=== PATIENT | female | born 1980 | race Caucasian/White ===

== ENCOUNTER → 2018-11-24 | Outpatient (CLI) | payer BC ==
[~2018-11-24] MED LIST: DARVOCET N; LORTAB ELIX0.5 MG/ML PO; MIRENA52 MG IU; MOTRIN 200200 MG/TAB PO; NO HOME MEDICATIONS; NORCO 325 MG-51 TAB PO; OXYCODONE5 M1 PO; PHENERGAN 25 TA25 MG PO; PRENATAL VITAMI1 TA5 PO; ROCEPHIN 11 G/10 ML IJ; TAMIFLU75 MG PO; TYLENOL 500MG500 MG PO; ZITHROMAX Z PA250 MG PO
== END ==
LOC: COL.RAD 15:26
DX: M25.511 Pain in right shoulder (principal)

== ENCOUNTER → 2020-04-01 | Outpatient (CLI) | payer BC | LOC: COL.RAD 07:53 | DX: K21.9 Gastro-esophageal reflux disease without esophagitis (principal) | CPT/HCPCS: A9541 ==

== ENCOUNTER → 2021-12-15 | Outpatient (CLI) | payer BC | LOC: MC.RAD 15:49 | DX: Z12.31 Encounter for screening mammogram for malignant neoplasm of breast (principal); R92.1 Mammographic calcification found on diagnostic imaging of breast ==

== ENCOUNTER → 2021-12-18 | Outpatient (CLI) | payer BC | LOC: MC.RAD 10:57 | DX: R92.0 Mammographic microcalcification found on diagnostic imaging of breast (principal) ==

== ENCOUNTER 2023-04-16 04:18 | Emergency (ER) | payer BC ==
[2023-04-16 04:22] VITALS: TEMP 97.5
[2023-04-16 04:56] LABS: ALBUMIN 3.9 gm/dL (3.5-5.0); BILIRUBIN,TOTAL 0.3 mg/dL (0.2-1.2); CALCIUM 8.9 mg/dL (8.4-10.2); CREATININE, serum 0.85 mg/dL (0.57-1.11); POTASSIUM 3.2 mmol/L (3.5-4.5); TOTAL PROTEIN 7.2 gm/dL (6.2-8.1)
[2023-04-16 06:33] LABS: COLLECTION METHOD CLEAN CATCH
[2023-04-16 06:47] LABS: PH 5.5 (5.0-8.5); URINE APPEARANCE Clear (CLEAR/HAZY); URINE BLOOD Negative (NEGATIVE); URINE COLOR Yellow (YELLOW); URINE GLUCOSE Negative (NEGATIVE); URINE KETONE Negative (NEGATIVE); URINE NITRATE Negative (NEGATIVE); URINE PROTEIN(semi-quant) Negative (NEGATIVE); URINE UROBILINOGEN 0.2 E.U/dL (0.2-1.0)
[2023-04-16 07:01] LABS: TRICYCLIC ANTIDEPRESS URINE NEGATIVE
[2023-04-16 07:26] VITALS: BP 116/79; PULSE 89
[2023-04-16 07:46] LABS: MUCOUS Present (NOT PRESENT); SQUAMOUS EPITHELIAL 0-2 /hpf (0-10); URINE BACTERIA Rare /hpf (NONE SEEN)
== END 2023-04-16 07:26 | disposition home or self-care (01) ==
LOC: COL.ER 04:18
PROVIDERS: Family Medicine
DX: R41.82 Altered mental status, unspecified (principal); F10.129 Alcohol abuse with intoxication, unspecified; Y90.6 Blood alcohol level of 120-199 mg/100 ml
CPT/HCPCS: J2405; J7030